=== PATIENT | male | born 1950 | race Caucasian/White ===

== ENCOUNTER 2021-05-27 14:16 | Observation (INO) | payer OTHER ==
[2021-05-27 16:07] LABS: BASO % 0.7 % (0-2.0); HEMATOCRIT 36.6 % (35.4-49); HEMOGLOBIN 12.7 GM/dL (11.7-16.9); MCH 30.8 pg (25.7-33.7); MCHC 34.8 g/dl (32.0-35.9); MEAN CELL VOLUME 88.5 fl (80-96); MEAN PLT VOLUME 9.9 fl (7.5-11.1); MONO % 3.7 % (3.8-10.2); NEUT % 80.6 % (42.8-82.8); PLATELET COUNT 103 10^3/uL (134-434); RBC 4.13 M/mm3 (4.00-5.60); RDW 16.1 % (11.9-15.9); VENOUS BASE EXCESS -5.3 mmol/L (-2-2); VENOUS O2 SATURATION 38.1 % (70-80); VENOUS PCO2 47.2 mmHg (38-52); VENOUS PH 7.279 (7.310-7.410); WHITE BLOOD COUNT 7.4 K/mm3 (4.0-10.0)
[2021-05-27 16:22] LABS: CHLORIDE 113 mmol/L (98-107); SODIUM 143 mmol/L (136-145)
[2021-05-27 16:25] LABS: ALBUMIN 3.2 g/dl (3.4-5.0); ANION GAP 5 MMOL/L (8-16); CALCIUM 8.3 mg/dL (8.5-10.1); CO2 25 mmol/L (21-32); GLUCOSE,RANDOM 145 mg/dL (74-106)
[2021-05-27 16:28] LABS: SGOT/AST 18 U/L (15-37); SGPT/ALT 17 U/L (13-61)
[2021-05-27 16:30] LABS: BILIRUBIN,TOTAL 0.3 mg/dL (0.2-1); CREATININE 1.8 mg/dL (0.55-1.3)
[2021-05-27 16:31] LABS: TOT PROT 6.5 g/dl (6.4-8.2)
[2021-05-27 16:32] LABS: ALK PHOS 52 U/L (45-117)
[2021-05-27 16:34] LABS: N-TERMINAL BNP 90.6 pg/ml (5-125)
[2021-05-27 20:44] LABS: URINE APPEARANCE CLEAR; URINE BILIRUBIN NEGATIVE (NEGATIVE); URINE COLOR YELLOW; URINE GLUCOSE (UA) NEGATIVE (NEGATIVE); URINE KETONE TRACE (NEGATIVE); URINE LEUK ESTERASE NEGATIVE (NEGATIVE); URINE NITRITE NEGATIVE (NEGATIVE); URINE PROTEIN TRACE (NEGATIVE)
[2021-05-27] MEDS: ATORVASTATIN CA 10 MG TABLET (FP) PO SCH (23:21)
[2021-05-27] MEDS: INSULIN SLIDING SCALE (NOVOLOG) 1 VIAL SQ SCH (23:21)
[2021-05-27 23:47] VITALS: BMI 27.1
[2021-05-28] MEDS ORDERED: ALBUTEROL SO4 HFA INHALER IH PRN (03:43)
[2021-05-28] MEDS: INSULIN SLIDING SCALE (NOVOLOG) 1 VIAL SQ SCH ×4 (05:59→21:15)
[2021-05-28] MEDS: HEPARIN NA (PORCINE) 5,000 UNITS/ML 1ML VIAL SQ SCH ×3 (05:59→21:15)
[2021-05-28 07:25] LABS: BASO % 1.6 % (0-2.0); EOS % 2.1 % (0-4.5); HEMATOCRIT 35.6 % (35.4-49); HEMOGLOBIN 12.6 GM/dL (11.7-16.9); LYMPH % 27.7 % (8-40); MCH 30.9 pg (25.7-33.7); MCHC 35.4 g/dl (32.0-35.9); MEAN CELL VOLUME 87.4 fl (80-96); MEAN PLT VOLUME 9.5 fl (7.5-11.1); MONO % 7.6 % (3.8-10.2); PLATELET COUNT 107 10^3/uL (134-434); RBC 4.07 M/mm3 (4.00-5.60); RDW 16.2 % (11.9-15.9); WHITE BLOOD COUNT 5.8 K/mm3 (4.0-10.0)
[2021-05-28 07:56] LABS: BLOOD UREA NITROGEN 20.2 mg/dL (7-18)
[2021-05-28 07:57] LABS: ALBUMIN 3.2 g/dl (3.4-5.0); CALCIUM 8.6 mg/dL (8.5-10.1); MAGNESIUM 2.1 mg/dL (1.8-2.4)
[2021-05-28 08:00] LABS: CREATININE 1.5 mg/dL (0.55-1.3); PHOSPHOROUS 3.2 mg/dL (2.5-4.9)
[2021-05-28 08:01] LABS: TOT PROT 6.5 g/dl (6.4-8.2)
[2021-05-28] MEDS ORDERED: LISINOPRIL 10 MG TABLET PO SCH (10:00)
[2021-05-28] MEDS ORDERED: FUROSEMIDE 20 MG TABLET (FP) PO SCH (10:00)
[2021-05-28] MEDS: amLODIPine BESYLATE 5 MG TABLET (FP) PO SCH (12:24)
[2021-05-28] MEDS: PANTOPRAZOLE 40 MG TABLET PO SCH (12:24)
[2021-05-28] MEDS: MEMANTINE HCL 5 MG TABLET (UD) PO SCH (12:25)
[2021-05-28] MEDS: metoPROLOL SUCCINATE 25 MG TAB.SR.24H (FP) PO SCH (12:26)
[2021-05-28] MEDS: TAMSULOSIN HCL 0.4 MG CAP PO SCH (12:26)
[2021-05-28] MEDS ORDERED: PT OWN MED DRAWER 7, Y5N ONE (14:48)
[2021-05-28] MEDS: RIVASTIGMINE 9.5 MG/24 HOURS TRANSDERMAL PATCH TD SCH (15:16)
[2021-05-28] MEDS: ATORVASTATIN CA 10 MG TABLET (FP) PO SCH (21:15)
[2021-05-29] MEDS: HEPARIN NA (PORCINE) 5,000 UNITS/ML 1ML VIAL SQ SCH ×3 (06:04→22:48)
[2021-05-29] MEDS: INSULIN SLIDING SCALE (NOVOLOG) 1 VIAL SQ SCH ×4 (06:05→22:48)
[2021-05-29 08:07] LABS: HEMATOCRIT 38.3 % (35.4-49); MCH 30.8 pg (25.7-33.7); MEAN CELL VOLUME 90.7 fl (80-96); MEAN PLT VOLUME 10.1 fl (7.5-11.1); PLATELET COUNT 116 10^3/uL (134-434); RBC 4.22 M/mm3 (4.00-5.60); RDW 16.4 % (11.9-15.9); WHITE BLOOD COUNT 5.4 K/mm3 (4.0-10.0)
[2021-05-29] MEDS ORDERED: PT OWN MED DRAWER 7, Y5N ONE (08:11)
[2021-05-29 08:34] LABS: CALCIUM 8.6 mg/dL (8.5-10.1)
[2021-05-29 08:35] LABS: ALBUMIN 3.3 g/dl (3.4-5.0); BLOOD UREA NITROGEN 22.4 mg/dL (7-18)
[2021-05-29 08:38] LABS: CREATININE 1.7 mg/dL (0.55-1.3)
[2021-05-29 08:39] LABS: BILIRUBIN,TOTAL 0.5 mg/dL (0.2-1); TOT PROT 6.7 g/dl (6.4-8.2)
[2021-05-29] MEDS: TAMSULOSIN HCL 0.4 MG CAP PO SCH (09:00)
[2021-05-29] MEDS: MEMANTINE HCL 5 MG TABLET (UD) PO SCH (09:00)
[2021-05-29] MEDS: PANTOPRAZOLE 40 MG TABLET PO SCH (09:00)
[2021-05-29] MEDS: RIVASTIGMINE 9.5 MG/24 HOURS TRANSDERMAL PATCH TD SCH (09:00)
[2021-05-29] MEDS: metoPROLOL SUCCINATE 25 MG TAB.SR.24H (FP) PO SCH (09:01)
[2021-05-29] MEDS: amLODIPine BESYLATE 5 MG TABLET (FP) PO SCH (09:01)
[2021-05-29] MEDS: SODIUM CHLORIDE 1,000 ML IV SCH (13:36)
[2021-05-29] MEDS: ATORVASTATIN CA 10 MG TABLET (FP) PO SCH (22:48)
[2021-05-30 01:53] VITALS: TEMP 98.5
[2021-05-30] MEDS: HEPARIN NA (PORCINE) 5,000 UNITS/ML 1ML VIAL SQ SCH (06:34)
[2021-05-30] MEDS: INSULIN SLIDING SCALE (NOVOLOG) 1 VIAL SQ SCH ×2 (06:34→11:25)
[2021-05-30 08:30] LABS: HEMATOCRIT 36.6 % (35.4-49); HEMOGLOBIN 12.9 GM/dL (11.7-16.9); MCH 31.3 pg (25.7-33.7); MCHC 35.2 g/dl (32.0-35.9); MEAN CELL VOLUME 88.9 fl (80-96); MEAN PLT VOLUME 9.8 fl (7.5-11.1); PLATELET COUNT 109 10^3/uL (134-434); RBC 4.12 M/mm3 (4.00-5.60); RDW 15.6 % (11.9-15.9); WHITE BLOOD COUNT 5.3 K/mm3 (4.0-10.0)
[2021-05-30] MEDS ORDERED: PT OWN MED DRAWER 7, Y5N ONE (08:39)
[2021-05-30 08:52] LABS: BLOOD UREA NITROGEN 21.2 mg/dL (7-18); CALCIUM 8.6 mg/dL (8.5-10.1)
[2021-05-30 08:55] LABS: CREATININE 1.4 mg/dL (0.55-1.3)
[2021-05-30 09:03] VITALS: BP 144/75; PULSE 105
[2021-05-30] MEDS: TAMSULOSIN HCL 0.4 MG CAP PO SCH (09:30)
[2021-05-30] MEDS: PANTOPRAZOLE 40 MG TABLET PO SCH (10:41)
[2021-05-30] MEDS: amLODIPine BESYLATE 5 MG TABLET (FP) PO SCH (10:41)
[2021-05-30] MEDS: MEMANTINE HCL 5 MG TABLET (UD) PO SCH (10:42)
[2021-05-30] MEDS: metoPROLOL SUCCINATE 25 MG TAB.SR.24H (FP) PO SCH (10:42)
[2021-05-30] MEDS: RIVASTIGMINE 9.5 MG/24 HOURS TRANSDERMAL PATCH TD SCH (10:43)
[2021-05-30] MEDS: SODIUM CHLORIDE 1,000 ML IV SCH (10:49)
== END 2021-05-30 15:28 | disposition home or self-care (01) ==
LOC: JER 14:16 → JERBED 16:28 → J4W 23:16
PROVIDERS: ADMIT Internal Medicine; ATTEND Internal Medicine
PROC: 3E023GC Introduction of Other Therapeutic Substance into Muscle, Percutaneous Approach (ICD-10-PCS; principal; 2021-05-27)
PROC: 3E0337Z Introduction of Electrolytic and Water Balance Substance into Peripheral Vein, Percutaneous Approach (ICD-10-PCS; 2021-05-27)
DX: R55 Syncope and collapse (principal); I12.9 Hypertensive chronic kidney disease with stage 1 through stage 4 chronic kidney disease, or unspecified chronic kidney disease; I27.20 Pulmonary hypertension, unspecified; E78.5 Hyperlipidemia, unspecified; E11.22 Type 2 diabetes mellitus with diabetic chronic kidney disease; N18.9 Chronic kidney disease, unspecified; N40.0 Benign prostatic hyperplasia without lower urinary tract symptoms; F03.90 Unspecified dementia, unspecified severity, without behavioral disturbance, psychotic disturbance, mood disturbance, and anxiety; J44.9 Chronic obstructive pulmonary disease, unspecified; R06.01 Orthopnea; Z29.9 Encounter for prophylactic measures, unspecified; S09.90XA Unspecified injury of head, initial encounter; W18.39XA Other fall on same level, initial encounter; Y93.89 Activity, other specified; Y92.89 Other specified places as the place of occurrence of the external cause; Z87.891 Personal history of nicotine dependence
CPT/HCPCS: 36415; 70450-TC; 70551-TC; 71045-TC-FY; 72125-TC; 76775-TC; 80048; 80053; 80061; 81003; 82010; 82550; 82570; 82803; 82962; 83036; 83735; 83880; 84100; 84156; 84443; 84484; 85025; 85027; 87086; 93005; 93010; 93306-TC; 93880-TC; 96365; 96372; 99285-25; C9803; G0378; J1644; U0003; U0005

== ENCOUNTER 2022-06-06 11:22 | Observation (INO) | payer OTHER ==
[2022-06-06 12:16] VITALS: BMI 26.3
[2022-06-06 14:42] LABS: BASO % 0.5 % (0-2.0); HEMATOCRIT 36.4 % (35.4-49); HEMOGLOBIN 12.6 GM/dL (11.7-16.9); LYMPH % 8.5 % (8-40); MCH 31.1 pg (25.7-33.7); MCHC 34.5 g/dl (32.0-35.9); MEAN CELL VOLUME 90.1 fl (80-96); MEAN PLT VOLUME 9.7 fl (7.5-11.1); MONO % 1.9 % (3.8-10.2); NEUT % 89.1 % (42.8-82.8); PLATELET COUNT 151 10^3/uL (134-434); RBC 4.04 M/mm3 (4.00-5.60); RDW 16.8 % (11.9-15.9); WHITE BLOOD COUNT 7.1 K/mm3 (4.0-10.0)
[2022-06-06 15:07] LABS: CALCIUM 8.9 mg/dL (8.5-10.1)
[2022-06-06 15:08] LABS: BLOOD UREA NITROGEN 24.9 mg/dL (7-18)
[2022-06-06 15:11] LABS: CREATININE 1.3 mg/dL (0.55-1.3)
[2022-06-06 15:12] LABS: BILIRUBIN,TOTAL 0.5 mg/dL (0.2-1); TOT PROT 7.8 g/dl (6.4-8.2)
[2022-06-06] MEDS ORDERED: ALBUTEROL SO4 HFA INHALER IH PRN (17:17)
[2022-06-06] MEDS ORDERED: ATORVASTATIN CA 10 MG TABLET (FP) PO SCH (22:00)
[2022-06-07] MEDS: INSULIN SLIDING SCALE (NOVOLOG) 1 VIAL SQ SCH ×3 (00:50→13:31)
[2022-06-07] MEDS ORDERED: ATORVASTATIN CA 10 MG TABLET (FP) ONE (00:51)
[2022-06-07 06:24] VITALS: TEMP 98.1
[2022-06-07] MEDS ORDERED: TAMSULOSIN HCL 0.4 MG CAP PO SCH (08:30)
[2022-06-07] MEDS ORDERED: amLODIPine BESYLATE 10 MG TABLET (FP) PO SCH (10:00)
[2022-06-07] MEDS ORDERED: metoPROLOL SUCCINATE 25 MG TAB.SR.24H (FP) PO SCH (10:00)
[2022-06-07] MEDS ORDERED: LOSARTAN POTASSIUM 25 MG TABLET PO SCH (10:00)
[2022-06-07] MEDS ORDERED: metoPROLOL SUCCINATE 25 MG TAB.SR.24H (FP) PO ONE (11:03)
[2022-06-07] MEDS ORDERED: LOSARTAN POTASSIUM 25 MG TABLET ONE (11:03)
[2022-06-07] MEDS ORDERED: amLODIPine BESYLATE 10 MG TABLET (FP) ONE (11:03)
[2022-06-07] MEDS ORDERED: TAMSULOSIN HCL 0.4 MG CAP ONE (11:03)
[2022-06-07 11:59] VITALS: BP 119/72; PULSE 70; RESP 18
== END 2022-06-07 15:30 | disposition home or self-care (01) ==
LOC: JER 11:22 → INTOOBSV 16:06 → JERBED 16:06
PROVIDERS: ADMIT Internal Medicine; ATTEND Internal Medicine
DX: Z52.4 Kidney donor (principal); I13.10 Hypertensive heart and chronic kidney disease without heart failure, with stage 1 through stage 4 chronic kidney disease, or unspecified chronic kidney disease; E11.22 Type 2 diabetes mellitus with diabetic chronic kidney disease; N18.9 Chronic kidney disease, unspecified; J44.9 Chronic obstructive pulmonary disease, unspecified; I77.819 Aortic ectasia, unspecified site; N40.0 Benign prostatic hyperplasia without lower urinary tract symptoms; I27.20 Pulmonary hypertension, unspecified
CPT/HCPCS: 0241U-QW; 36415; 71046-TC-FY; 80053; 82962; 84484; 85025; 93005; 93010; 99285-25; G0378

== ENCOUNTER 2023-07-08 11:05 | Observation (INO) | payer OTHER ==
[2023-07-08 11:18] VITALS: BMI 27.4
[2023-07-08 12:32] LABS: BASO % 0.8 % (0-2.0); EOS % 0.9 % (0-4.5); HEMOGLOBIN 11.8 GM/dL (11.7-16.9); LYMPH % 10.3 % (8-40); MCH 30.4 pg (25.7-33.7); MCHC 33.7 g/dl (32.0-35.9); MEAN CELL VOLUME 90.2 fl (80-96); MEAN PLT VOLUME 9.7 fl (7.5-11.1); MONO % 4.8 % (3.8-10.2); NEUT % 83.2 % (42.8-82.8); PLATELET COUNT 138 10^3/uL (134-434); RBC 3.88 M/mm3 (4.00-5.60); RDW 16.2 % (11.9-15.9); WHITE BLOOD COUNT 7.9 K/mm3 (4.0-10.0)
[2023-07-08 12:51] LABS: POTASSIUM 5.2 mmol/L (3.5-5.1)
[2023-07-08 12:53] LABS: BLOOD UREA NITROGEN 20.1 mg/dL (7-18); CALCIUM 7.5 mg/dL (8.5-10.1)
[2023-07-08 12:54] LABS: ALBUMIN 3.1 g/dl (3.4-5.0)
[2023-07-08 12:56] LABS: CREATININE 1.4 mg/dL (0.55-1.3)
[2023-07-08 12:58] LABS: BILIRUBIN,TOTAL 0.5 mg/dL (0.2-1); TOT PROT 6.6 g/dl (6.4-8.2)
[2023-07-08 15:41] VITALS: TEMP 97.6
[2023-07-08] MEDS ORDERED: ALBUTEROL SO4 HFA INHALER IH PRN (16:09)
[2023-07-08] MEDS ORDERED: SODIUM CHLORIDE 0.9% 500 ML INFUS.BAG IV ONE (16:10)
[2023-07-08 19:40] LABS: URINE APPEARANCE CLEAR; URINE BILIRUBIN NEGATIVE (NEGATIVE); URINE COLOR YELLOW; URINE GLUCOSE (UA) NEGATIVE (NEGATIVE); URINE KETONE NEGATIVE (NEGATIVE); URINE LEUK ESTERASE NEGATIVE (NEGATIVE); URINE NITRITE NEGATIVE (NEGATIVE); URINE PROTEIN NEGATIVE (NEGATIVE)
[2023-07-08] MEDS ORDERED: MECLIZINE HCL 12.5 MG TABLET ONE (20:48)
[2023-07-08] MEDS ORDERED: TAMSULOSIN HCL 0.4 MG CAP ONE (20:48)
[2023-07-08] MEDS ORDERED: ATORVASTATIN CA 10 MG TABLET (FP) ONE (20:48)
[2023-07-08] MEDS: MECLIZINE HCL 12.5 MG TABLET PO SCH (21:03)
[2023-07-08] MEDS: HEPARIN NA (PORCINE) 5,000 UNITS/ML 1ML VIAL SQ SCH (21:03)
[2023-07-08] MEDS: MEMANTINE HCL 10 MG TABLET (FP) PO SCH (21:04)
[2023-07-08] MEDS ORDERED: ATORVASTATIN CA 10 MG TABLET (FP) PO SCH (22:00)
[2023-07-08] MEDS ORDERED: TAMSULOSIN HCL 0.4 MG CAP PO SCH (22:00)
[2023-07-09] MEDS ORDERED: HALOPERIDOL LACTATE 5 MG/ML IM ONE (00:49)
[2023-07-09] MEDS ORDERED: TAMSULOSIN HCL 0.4 MG CAP PO SCH (04:55)
[2023-07-09 08:48] LABS: HEMATOCRIT 35.3 % (35.4-49); HEMOGLOBIN 11.9 GM/dL (11.7-16.9); MCH 30.2 pg (25.7-33.7); MCHC 33.8 g/dl (32.0-35.9); MEAN CELL VOLUME 89.4 fl (80-96); MEAN PLT VOLUME 9.8 fl (7.5-11.1); PLATELET COUNT 136 10^3/uL (134-434); RBC 3.95 M/mm3 (4.00-5.60); RDW 16.1 % (11.9-15.9); WHITE BLOOD COUNT 6.4 K/mm3 (4.0-10.0)
[2023-07-09 08:52] LABS: POTASSIUM 3.9 mmol/L (3.5-5.1)
[2023-07-09 08:55] LABS: BLOOD UREA NITROGEN 18.3 mg/dL (7-18); MAGNESIUM 1.9 mg/dL (1.8-2.4)
[2023-07-09 08:58] LABS: PHOSPHOROUS 2.5 mg/dL (2.5-4.9)
[2023-07-09 08:59] LABS: CREATININE 1.4 mg/dL (0.55-1.3)
[2023-07-09] MEDS ORDERED: MECLIZINE HCL 12.5 MG TABLET ONE (09:06)
[2023-07-09] MEDS ORDERED: TAMSULOSIN HCL 0.4 MG CAP ONE (09:06)
[2023-07-09] MEDS ORDERED: HEPARIN NA (PORCINE) 5,000 UNITS/ML 1ML VIAL ONE (09:07)
[2023-07-09] MEDS: HEPARIN NA (PORCINE) 5,000 UNITS/ML 1ML VIAL SQ SCH (09:13)
[2023-07-09] MEDS: MECLIZINE HCL 12.5 MG TABLET PO SCH (09:13)
[2023-07-09] MEDS: MEMANTINE HCL 10 MG TABLET (FP) PO SCH (09:13)
[2023-07-09 09:20] LABS: CALCIUM 8.7 mg/dL (8.5-10.1)
[2023-07-09 11:47] VITALS: RESP 19
[2023-07-09 13:05] VITALS: BP 145/70; PULSE 75
== END 2023-07-09 13:00 | disposition home or self-care (01) ==
LOC: JER 11:05 → JERBED 15:27
PROVIDERS: ADMIT Internal Medicine; ATTEND Internal Medicine
PROC: 3E023GC Introduction of Other Therapeutic Substance into Muscle, Percutaneous Approach (ICD-10-PCS; principal; 2023-07-08)
PROC: 3E033NZ Introduction of Analgesics, Hypnotics, Sedatives into Peripheral Vein, Percutaneous Approach (ICD-10-PCS; 2023-07-08)
PROC: 3E0337Z Introduction of Electrolytic and Water Balance Substance into Peripheral Vein, Percutaneous Approach (ICD-10-PCS; 2023-07-08)
DX: I95.1 Orthostatic hypotension (principal); E86.0 Dehydration; R00.1 Bradycardia, unspecified; I71.40 Abdominal aortic aneurysm, without rupture, unspecified; N18.9 Chronic kidney disease, unspecified; J44.9 Chronic obstructive pulmonary disease, unspecified; R42 Dizziness and giddiness; N40.0 Benign prostatic hyperplasia without lower urinary tract symptoms; E78.00 Pure hypercholesterolemia, unspecified; E11.9 Type 2 diabetes mellitus without complications; I71.20 Thoracic aortic aneurysm, without rupture, unspecified; Z87.891 Personal history of nicotine dependence; I10 Essential (primary) hypertension; Z90.5 Acquired absence of kidney
CPT/HCPCS: 0241U-QW; 36415; 70450-TC; 71045-TC-FY; 80048; 80053; 81003; 82607; 82746; 82962; 83036; 83735; 84100; 84443; 84484; 85025; 85027; 93005; 93010; 96372; 99285-25; G0378; J1644

== ENCOUNTER 2024-08-27 13:24 | Observation (INO) | payer OTHER ==
[2024-08-27 13:56] VITALS: BMI 24.1
[2024-08-27 15:01] LABS: BASO % 0.8 % (0-2.0); HEMOGLOBIN 11.1 GM/dL (11.7-16.9); LYMPH % 10.7 % (8-40); MCH 30.5 pg (25.7-33.7); MCHC 33.6 g/dl (32.0-35.9); MEAN CELL VOLUME 90.8 fl (80-96); MEAN PLT VOLUME 9.4 fl (7.5-11.1); MONO % 4.1 % (3.8-10.2); NEUT % 83.4 % (42.8-82.8); PLATELET COUNT 114 10^3/uL (134-434); RBC 3.63 M/mm3 (4.00-5.60); RDW 16.7 % (11.9-15.9)
[2024-08-27 15:12] LABS: INR 1.17 (0.83-1.09); PROTHROMBIN TIME (PATIENT) 12.8 SEC (9.7-13.0)
[2024-08-27 15:15] LABS: ACTIVATED PTT 24.5 SECONDS (25.2-36.5)
[2024-08-27 15:51] LABS: POTASSIUM 4.7 mmol/L (3.5-5.1)
[2024-08-27 15:56] LABS: ALBUMIN 3.1 g/dl (3.4-5.0)
[2024-08-27 15:57] LABS: BLOOD UREA NITROGEN 24.3 mg/dL (7-18)
[2024-08-27 15:59] LABS: CREATININE 1.8 mg/dL (0.55-1.3)
[2024-08-27 16:01] LABS: TOT PROT 6.2 g/dl (6.4-8.2)
[2024-08-27 16:02] LABS: BILIRUBIN,TOTAL 0.4 mg/dL (0.2-1)
[2024-08-27] MEDS ORDERED: HALOPERIDOL LACTATE 5 MG/ML ONE ×2 (17:41→23:58)
[2024-08-27] MEDS: HALOPERIDOL LACTATE 5 MG/ML IM ONE (17:53)
[2024-08-27] MEDS ORDERED: MIDAZOLAM HCL 2 MG/2 ML SINGLE DOSE VIAL ONE (18:41)
[2024-08-27] MEDS: MIDAZOLAM HCL 2 MG/2 ML SINGLE DOSE VIAL IVPUSH ONE ×2 (18:58→19:09)
[2024-08-27] MEDS ORDERED: MIDAZOLAM HCL 2 MG/2 ML SINGLE DOSE VIAL IVPUSH ONE (19:03)
[2024-08-27] MEDS: OLANZapine 5 MG TABLET PO ONE (21:16)
[2024-08-27 22:10] LABS: PH,URINE 5.5 (5.0-8.0); URINE APPEARANCE CLEAR; URINE BILIRUBIN NEGATIVE (NEGATIVE); URINE COLOR YELLOW; URINE GLUCOSE (UA) NEGATIVE (NEGATIVE); URINE KETONE NEGATIVE (NEGATIVE); URINE LEUK ESTERASE NEGATIVE (NEGATIVE); URINE NITRITE NEGATIVE (NEGATIVE); URINE PROTEIN NEGATIVE (NEGATIVE); URINE UROBILINOGEN 0.2 mg/dL (0.2-1.0)
[2024-08-28] MEDS: HALOPERIDOL LACTATE 5 MG/ML IM PRN
[2024-08-28 00:28] VITALS: RESP 20; TEMP 100
[2024-08-28] MEDS ORDERED: LORazepam 2 MG/ML SDV VIAL ONE ×3 (01:50→15:25)
[2024-08-28] MEDS: ACETAMINOPHEN 1000 MG/100 ML BAG IVPB ONE (02:00)
[2024-08-28] MEDS: LORazepam 2 MG/ML SDV VIAL IVPUSH SCH (05:53)
[2024-08-28] MEDS: LORazepam 2 MG/ML SDV VIAL IVPUSH PRN (08:47)
[2024-08-28 08:50] LABS: BASO % 1.2 % (0-2.0); EOS % 1.3 % (0-4.5); HEMATOCRIT 35.1 % (35.4-49); HEMOGLOBIN 11.8 GM/dL (11.7-16.9); LYMPH % 23.6 % (8-40); MCH 30.6 pg (25.7-33.7); MCHC 33.7 g/dl (32.0-35.9); MEAN CELL VOLUME 90.6 fl (80-96); MEAN PLT VOLUME 9.5 fl (7.5-11.1); NEUT % 64.9 % (42.8-82.8); PLATELET COUNT 113 10^3/uL (134-434); RBC 3.87 M/mm3 (4.00-5.60); RDW 16.4 % (11.9-15.9); WHITE BLOOD COUNT 6.9 K/mm3 (4.0-10.0)
[2024-08-28 08:53] LABS: POTASSIUM 4.5 mmol/L (3.5-5.1)
[2024-08-28 08:55] LABS: BLOOD UREA NITROGEN 22.1 mg/dL (7-18); CALCIUM 8.8 mg/dL (8.5-10.1)
[2024-08-28 08:56] LABS: ALBUMIN 3.2 g/dl (3.4-5.0); MAGNESIUM 1.9 mg/dL (1.8-2.4)
[2024-08-28 08:58] LABS: CREATININE 1.5 mg/dL (0.55-1.3)
[2024-08-28 09:00] LABS: BILIRUBIN,TOTAL 0.6 mg/dL (0.2-1); TOT PROT 6.4 g/dl (6.4-8.2)
[2024-08-28] MEDS: INSULIN ASPART SLIDING SCALE (NOVOLOG) 1 VIAL SQ SCH (09:42)
[2024-08-28] MEDS: ASPIRIN 81 MG CHEWABLE TABLETS PO SCH (09:44)
[2024-08-28] MEDS ORDERED: HEPARIN NA (PORCINE) 5,000 UNITS/ML 1ML VIAL SQ SCH (10:00)
[2024-08-28] MEDS ORDERED: HALOPERIDOL LACTATE 5 MG/ML ONE (10:15)
[2024-08-28 13:13] VITALS: BP 132/63; PULSE 56
[2024-08-28] MEDS ORDERED: MEMANTINE HCL 10 MG TABLET (FP) PO SCH (22:00)
== END 2024-08-28 16:40 | disposition home or self-care (01) ==
LOC: JER 13:24 → JERBED 21:07
PROVIDERS: ADMIT Internal Medicine; ATTEND Nurse Practitioner Acute Care
PROC: 3E033NZ Introduction of Analgesics, Hypnotics, Sedatives into Peripheral Vein, Percutaneous Approach (ICD-10-PCS; principal; 2024-08-27)
PROC: 3E023NZ Introduction of Analgesics, Hypnotics, Sedatives into Muscle, Percutaneous Approach (ICD-10-PCS; 2024-08-27)
DX: R55 Syncope and collapse (principal); F03.90 Unspecified dementia, unspecified severity, without behavioral disturbance, psychotic disturbance, mood disturbance, and anxiety; N17.9 Acute kidney failure, unspecified; E11.22 Type 2 diabetes mellitus with diabetic chronic kidney disease; I12.9 Hypertensive chronic kidney disease with stage 1 through stage 4 chronic kidney disease, or unspecified chronic kidney disease; N18.9 Chronic kidney disease, unspecified; Z90.5 Acquired absence of kidney; R00.1 Bradycardia, unspecified; R45.1 Restlessness and agitation; N40.0 Benign prostatic hyperplasia without lower urinary tract symptoms; I71.21 Aneurysm of the ascending aorta, without rupture; W18.39XA Other fall on same level, initial encounter; Y93.89 Activity, other specified; Y92.89 Other specified places as the place of occurrence of the external cause
CPT/HCPCS: 36415; 70450-TC; 72125-TC; 80053; 80061; 81003; 82550; 82962; 83036; 83735; 84100; 84484; 85025; 85610; 85730; 86850; 86900; 86901; 93005; 93010; 96372; 96374; 96375; 96376; 99285-25; G0378; J0131